=== PATIENT | male | born 1975 ===

== ENCOUNTER 2017-12-04 13:25 | Emergency (ER) | payer BC ==
[2017-12-04 13:40] VITALS: BMI 27.8
[2017-12-04 13:44] VITALS: TEMP 98.6
[2017-12-04] MEDS ORDERED: Oxycodone/Acetaminophen 5/325 mg Tab PO STA (14:02)
--- NOTE | 2017-12-04 14:02 | ED PDOC ---
Arrival/HPI - General Chief Complaint: Rib Injury Time Seen by Provider: 12/04/17 13:57 Past Medical History - Infectious Disease Hx of Infectious Diseases: None - Psychiatric Hx Substance Use: No - Surgical History Other/Comment: vocal cord surgery 09/28/2017 - Anesthesia Hx Anesthesia Reactions: No Hx Malignant Hyperthermia: No Family/Social History Smoking Status: Never Smoked Hx Alcohol Use: Yes Frequency of alcohol use: Socially Hx Substance Use: No Allergies/Home Meds Allergies/Adverse Reactions: Allergies No Known Allergies Allergy (Verified 12/04/17 14:02) Physical Exam Vital Signs Temp Pulse Resp BP Pulse Ox 12/04/17 13:26 98.6 F 79 18 120/79 98 Disposition/Present on Arrival - Present on Arrival History of DVT/PE: No History of Uncontrolled Diabetes: No Urinary Catheter: No History of Decub. Ulcer: No History Surgical Site Infection Following: None - Disposition
--- NOTE | 2017-12-04 14:06 | ED PDOC ---
Arrival/HPI - General Chief Complaint: Rib Injury Time Seen by Provider: 12/04/17 13:57 Historian: Patient - History of Present Illness Narrative History of Present Illness (Text): 12/04/17 14:02 42 year old male, with no significant past medical history, who presents to the Emergency department complaining of right anterior rib cage pain for 7 days s/p hit against the side view mirror. Patient states he was washing a car, slipped and fell, hitting the car's side view mirror against the rt. anterior rib. Patient notes persistent pain every time he coughs or turns the chest cavity, no hematuria, no abdominal pain, eating and drinking well. Patient denies any fever, chills, chest pain, shortness of breath, nausea, vomiting, diarrhea, neck pain, headache, dizziness, or any other complaints. Time/Duration: 1 week Symptom Onset: Sudden Symptom Course: Unchanged Activities at Onset: Significant (Fall) Context: Slipped Past Medical History - Provider Review Nursing Documentation Reviewed: Yes - Infectious Disease Hx of Infectious Diseases: None - Psychiatric Hx Substance Use: No - Surgical History Other/Comment: vocal cord surgery 09/28/2017 - Anesthesia Hx Anesthesia Reactions: No Hx Malignant Hyperthermia: No Family/Social History - Physician Review Nursing Documentation Reviewed: Yes Family/Social History: Unknown Family HX Smoking Status: Never Smoked Hx Alcohol Use: Yes Frequency of alcohol use: Socially Hx Substance Use: No Allergies/Home Meds Allergies/Adverse Reactions: Allergies No Known Allergies Allergy (Verified 12/04/17 14:02) Review of Systems - Review of Systems Constitutional: Normal Eyes: Normal ENT: Normal Respiratory: Normal. absent: SOB, Cough Cardiovascular: Normal. absent: Chest Pain Gastrointestinal: Normal. absent: Abdominal Pain Genitourinary Male: Normal. absent: Dysuria, Frequency, Hematuria Musculoskeletal: Arthralgias (Right rib cage), Myalgias. absent: Back Pain, Neck Pain Skin: Normal. absent: Rash Neurological: Normal. absent: Headache, Dizziness Endocrine: Normal Hemo/Lymphatic: Normal Psychiatric: Normal Physical Exam Vital Signs Reviewed: Yes Vital Signs Temp Pulse Resp BP Pulse Ox 12/04/17 13:26 98.6 F 79 18 120/79 98 Temperature: Afebrile Blood Pressure: Normal Pulse: Regular Respiratory Rate: Normal Appearance: Positive for: Well-Appearing, Non-Toxic, Comfortable Pain Distress: Moderate Mental Status: Positive for: Alert and Oriented X 3 - Systems Exam Head: Present: Atraumatic, Normocephalic Pupils: Present: PERRL Extroacular Muscles: Present: EOMI Conjunctiva: Present: Normal Mouth: Present: Moist Mucous Membranes Neck: Present: Normal Range of Motion Respiratory/Chest: Present: Clear to Auscultation, Good Air Exchange, Tender to Palpation (+ttp on the rt. anterior mid anterior midclavicular rib region approx. 5-8th rib region with no ecchymosis/laceration/abrasion. ). No: Respiratory Distress, Accessory Muscle Use Cardiovascular: Present: Regular Rate and Rhythm, Normal S1, S2. No: Murmurs Abdomen: No: Tenderness, Distention, Peritoneal Signs Back: Present: Normal Inspection Upper Extremity: Present: Normal Inspection. No: Cyanosis, Edema Lower Extremity: Present: Normal Inspection. No: Edema Neurological: Present: GCS=15, CN II-XII Intact, Speech Normal Skin: Present: Warm, Dry, Normal Color. No: Rashes Psychiatric: Present: Alert, Oriented x 3, Normal Insight, Normal Concentration Medical Decision Making ED Course and Treatment: 12/04/17 14:08 Impression: 42 year old male who presents to the emergency department complaining of right anterior rib cage pain for 7 days s/p fall. Plan: -- CT Chest -- Ibuprofen -- Observe and reassess 12/04/17 16:31 -CT results show: Slightly limited motion degraded study. Minor scarring changes middle lobe region. Small 3.3 mm nodule lateral aspect right middle lobe. Followup the CT scan in 12 months could be performed. There is also minor biapical pleural thickening and parenchymal scarring cases Note that motion artifact particularly limits evaluation of the right ribs. . There is slight localized angulation of the anterior right 4th rib of which though the cortex appears intact at this level at however motion artifact is a limiting factor particularly in evaluation of the right ribs. (best visualized on axial series 3 image number [id number]). This could be an anatomic variation though a nondisplaced fracture cannot be completely excluded. . The remaining ribs appear grossly intact so far as can be seen. -As per Radiologist recommendation Dr. Pack, pt. will need follow up CT chest in 12 months. -I discussed with the patient about the likely murphy of possible small non- displaced rt. 4th rib fracture as it is inconclusive on the CT but this is the location of the pain. Pain improved, feeling much better. -Discharge home with incentive spirometer, motrin, lidoderm patch, follow up with repeat CT chest in 12 months as per the radiologist recommendation about the nodule 3.3mm on the lateral aspect of the rt. middle lung, avoid strenuous exercise or activity, follow up with your own pmd and orthopedic within 2 days, return to the ER for any new or worsening signs or symptoms. - RAD Interpretation Radiology Orders: 12/04/17 14:02 CHEST W/O CONTRAST [CT] Stat PROCEDURE: CT Chest without contrast HISTORY: Right anterior rib cage pain. COMPARISON: No prior study available for comparison TECHNIQUE: Contiguous axial images were obtained through the chest without intravenous contrast enhancement. Sagittal and coronal reconstructions were performed. Radiation dose (DLP): 550.65 mGy-cm. This CT exam was performed using one or more of the following dose reduction techniques: Automated exposure control, adjustment of the mA and/or kV according to patient size, and/or use of iterative reconstruction technique. FINDINGS: LUNGS: Minor localized scarring changes in the middle lobe abutting the pleural surface. Minor biapical pleural thickening and minimal adjacent parenchymal scarring. Lung oh are otherwise clear. No evidence of acute consolidation. . There is a tiny approximately 3.3 mm nodule lateral aspect right middle lobe. Follow-up CT scan in 12 months could be performed to assess stability. MEDIASTINUM: Heart size is within range normal. No significant pericardial effusion. Ascending thoracic aorta measures approximately 3.7 cm and descending thoracic aorta measures approximately 2.8 cm. Three-vessel arch. Pulmonary trunk measures approximately 3.1 cm. No significant mediastinal adenopathy. Evaluation for hilar adenopathy is limited due to the lack of circulating intravenous contrast material. Central airways midline patent. No large central endoluminal lesions. PLEURA: No evidence of effusion or pneumothorax. BONES: No evidence of acute compression fractures no retropulsed fragments seen within the visualized lower cervical thoracic or left. Minor multilevel degenerative spondylosis. Note that motion artifact particularly limits evaluation of the right ribs. . There is slight localized angulation of the anterior right 4th rib of which though the cortex appears intact at this level at however motion artifact is a limiting factor particularly in evaluation of the right ribs. (best visualized on axial series 3 image number [id number]). This could be an anatomic variation though a nondisplaced fracture cannot be completely excluded. . The remaining ribs appear grossly intact so far as can be seen. UPPER ABDOMEN: Visualized upper abdominal structures appear grossly unremarkable. OTHER FINDINGS: None. IMPRESSION: Slightly limited motion degraded study . Minor scarring changes middle lobe region. Small 3.3 mm nodule lateral aspect right middle lobe. Followup the CT scan in 12 months could be performed. There is also minor biapical pleural thickening and parenchymal scarring cases Note that motion artifact particularly limits evaluation of the right ribs. . There is slight localized angulation of the anterior right 4th rib of which though the cortex appears intact at this level at however motion artifact is a limiting factor particularly in evaluation of the right ribs. (best visualized on axial series 3 image number [id number]). This could be an anatomic variation though a nondisplaced fracture cannot be completely excluded. . The remaining ribs appear grossly intact so far as can be seen. County Manager: Radiologist - Medication Orders Current Medication Orders: Discontinued Medications Ibuprofen (Motrin Tab) 600 mg PO STAT STA Stop: 12/04/17 14:03 Last Admin: 12/04/17 14:30 Dose: 600 mg Oxycodone/Acetaminophen (Percocet 5/325 Mg Tab) 1 tab PO STAT STA Stop: 12/04/17 14:03 Last Admin: 12/04/17 14:29 Dose: 1 tab [facility] Pain Assessment Document 12/04/17 14:29 EWO (Rec: 12/04/17 14:30 EWO [id number]) Pain Reassessment Is this a pain reassessment? No Sleep Is patient sleeping during reassessment? No Presence of Pain Presence of Pain Yes Pain Scale Used Pain Scale Used Numeric Location Left, Right or Bilateral Right - PA / GIS PROFESSOR / Resident Statement MD/DO has reviewed & agrees with the documentation as recorded. - Scribe Statement The provider has reviewed the documentation as recorded by the Vaneibhermann Nunez All medical record entries made by the Scribe were at my direction and personally dictated by me. I have reviewed the chart and agree that the record accurately reflects my personal performance of the history, physical exam, medical decision making, and the department course for this patient. I have also personally directed, reviewed, and agree with the discharge instructions and disposition. Disposition/Present on Arrival - Present on Arrival Any Indicators Present on Arrival: No History of DVT/PE: No History of Uncontrolled Diabetes: No Urinary Catheter: No History of Decub. Ulcer: No History Surgical Site Infection Following: None - Disposition Have Diagnosis and Disposition been Completed?: Yes Diagnosis: Rib injury, Rib pain, Abnormal CT of the chest, Lung nodule Disposition: HOME/ ROUTINE Disposition Time: 14:19 Patient Plan: Discharge Patient Problems: Current Active Problems Problem Status Onset Rib injury Acute Condition: GOOD Discharge Instructions (ExitCare): Pulmonary Nodule Additional Instructions: -Discharge home with incentive spirometer, motrin, lidoderm patch, follow up with repeat CT chest in 12 months as per the radiologist recommendation about the nodule 3.3mm on the lateral aspect of the rt. middle lung, avoid strenuous exercise or activity, follow up with your own pmd and orthopedic within 2 days, return to the ER for any new or worsening signs or symptoms. Prescriptions: Ibuprofen [Motrin] 600 mg PO QID PRN #30 tab PRN Reason: Other Lidocaine 5% [Lidoderm] 1 patch TOP DAILY #14 patch Referrals: Blake Iglesias MD [Staff Provider] - Follow up with primary Stalin Jiménez III, MD [Medical Doctor] - Follow up with primary [facility] at [facility] [place] [Outside] - Follow up with primary Forms: WORK NOTE
--- NOTE | 2017-12-04 16:25 | CT ---
PROCEDURE: CT Chest without contrast HISTORY: Right anterior rib cage pain. COMPARISON: No prior study available for comparison TECHNIQUE: Contiguous axial images were obtained through the chest without intravenous contrast enhancement. Sagittal and coronal reconstructions were performed. Radiation dose (DLP): 550.65 mGy-cm. This CT exam was performed using one or more of the following dose reduction techniques: Automated exposure control, adjustment of the mA and/or kV according to patient size, and/or use of iterative reconstruction technique. FINDINGS: LUNGS: Minor localized scarring changes in the middle lobe abutting the pleural surface. Minor biapical pleural thickening and minimal adjacent parenchymal scarring. Lung oh are otherwise clear. No evidence of acute consolidation. . There is a tiny approximately 3.3 mm nodule lateral aspect right middle lobe. Follow-up CT scan in 12 months could be performed to assess stability. MEDIASTINUM: Heart size is within range normal. No significant pericardial effusion. Ascending thoracic aorta measures approximately 3.7 cm and descending thoracic aorta measures approximately 2.8 cm. Three-vessel arch. Pulmonary trunk measures approximately 3.1 cm. No significant mediastinal adenopathy. Evaluation for hilar adenopathy is limited due to the lack of circulating intravenous contrast material. Central airways midline patent. No large central endoluminal lesions. PLEURA: No evidence of effusion or pneumothorax. BONES: No evidence of acute compression fractures no retropulsed fragments seen within the visualized lower cervical thoracic or left. Minor multilevel degenerative spondylosis. Note that motion artifact particularly limits evaluation of the right ribs. . There is slight localized angulation of the anterior right 4th rib of which though the cortex appears intact at this level at however motion artifact is a limiting factor particularly in evaluation of the right ribs. (best visualized on axial series 3 image number [id number]). This could be an anatomic variation though a nondisplaced fracture cannot be completely excluded. . The remaining ribs appear grossly intact so far as can be seen. UPPER ABDOMEN: Visualized upper abdominal structures appear grossly unremarkable. OTHER FINDINGS: None. IMPRESSION: Slightly limited motion degraded study . Minor scarring changes middle lobe region. Small 3.3 mm nodule lateral aspect right middle lobe. Followup the CT scan in 12 months could be performed. There is also minor biapical pleural thickening and parenchymal scarring cases Note that motion artifact particularly limits evaluation of the right ribs. . There is slight localized angulation of the anterior right 4th rib of which though the cortex appears intact at this level at however motion artifact is a limiting factor particularly in evaluation of the right ribs. (best visualized on axial series 3 image number [id number]). This could be an anatomic variation though a nondisplaced fracture cannot be completely excluded. . The remaining ribs appear grossly intact so far as can be seen.
[2017-12-04 17:09] VITALS: BP 148/92; PULSE 72; RESP 17; O2SAT 99
== END 2017-12-04 17:11 | disposition home or self-care (01) ==
LOC: ED 13:25
DX: R91.8 Other nonspecific abnormal finding of lung field (principal); S29.9XXA Unspecified injury of thorax, initial encounter; W01.198A Fall on same level from slipping, tripping and stumbling with subsequent striking against other object, initial encounter; Y93.89 Activity, other specified; Y92.89 Other specified places as the place of occurrence of the external cause

== ENCOUNTER 2019-01-07 10:36 | Emergency (ER) | payer BC ==
[2019-01-07 11:15] VITALS: BP 140/95; PULSE 79; RESP 17; TEMP 98.7; O2SAT 97; BMI 28.0
--- NOTE | 2019-01-07 15:30 | ED PDOC ---
Arrival/HPI - General Chief Complaint: Eye Problem Time Seen by Provider: 01/07/19 10:38 Historian: Patient - History of Present Illness Narrative History of Present Illness (Text): 01/07/19 10:40 A 43 year old male with no significant past medical history presents to the emergency department complaining of right eye pain and eyelid swelling for the past 1 day. Patient reports he woke up and noted his eye was "glued shut". Pa delia denies any pain upon eye movement, vision changes, fever, chest pain, or any other complaints. PMD: Leia Sadler Time/Duration: 24 hours Symptom Onset: Gradual Symptom Course: Unchanged Activities at Onset: Light Context: Home Past Medical History - Provider Review Nursing Documentation Reviewed: Yes - Infectious Disease Hx of Infectious Diseases: None - Cardiac Hx Cardiac Disorders: No - Pulmonary Hx Respiratory Disorders: No - Neurological Hx Neurological Disorder: No - HEENT Hx HEENT Disorder: No - Renal Hx Renal Disorder: No - Endocrine/Metabolic Hx Endocrine Disorders: No - Hematological/Oncological Hx Blood Disorders: No - Integumentary Hx Dermatological Disorder: No - Musculoskeletal/Rheumatological Hx Musculoskeletal Disorders: No - Gastrointestinal Hx Gastrointestinal Disorders: No - Genitourinary/Gynecological Hx Genitourinary Disorders: No - Psychiatric Hx Psychophysiologic Disorder: No Hx Substance Use: No - Surgical History Other/Comment: vocal cord surgery 09/28/2017 - Anesthesia Hx Anesthesia: No Family/Social History - Physician Review Nursing Documentation Reviewed: Yes Family/Social History: No Known Family HX Smoking Status: Never Smoked Hx Alcohol Use: Yes Hx Substance Use: No Allergies/Home Meds Allergies/Adverse Reactions: Allergies No Known Allergies Allergy (Verified 12/04/17 14:02) Review of Systems - Physician Review All systems were reviewed & negative as marked: Yes - Review of Systems Constitutional: absent: Fevers Eyes: Eye Pain (right eye pain), Other (eyelid swelling). absent: Vision Changes Cardiovascular: absent: Chest Pain Physical Exam Vital Signs Temp Pulse Resp BP Pulse Ox 01/07/19 11:04 98.7 F 79 17 140/95 H 97 Temperature: Afebrile Blood Pressure: Hypertensive Pulse: Regular Respiratory Rate: Normal Appearance: Positive for: Non-Toxic Pain Distress: Mild Mental Status: Positive for: Alert and Oriented X 3 - Systems Exam Head: Present: Atraumatic, Normocephalic Pupils: Present: PERRL Extroacular Muscles: Present: EOMI Conjunctiva: Present: Injected Respiratory/Chest: Present: Clear to Auscultation, Good Air Exchange. No: Respiratory Distress, Accessory Muscle Use Cardiovascular: Present: Regular Rate and Rhythm, Normal S1, S2. No: Murmurs Neurological: Present: GCS=15, CN II-XII Intact, Speech Normal Skin: Present: Warm, Dry, Normal Color, Other (no puss noted to the left eyelid; eyelid is mild swollen and erythematous ). No: Rashes Psychiatric: Present: Alert, Oriented x 3, Normal Insight, Normal Concentration Medical Decision Making ED Course and Treatment: 01/07/19 10:40 Impression: 43 year old male presenting to the emergency room complaining of right eye pain and eyelid swelling for the past 1 day. Plan: -- Reassess and disposition Prior Visits: Notes and results from previous visits were reviewed. Progress Notes: - Scribe Statement The provider has reviewed the documentation as recorded by the Vaneibhermann Smith All medical record entries made by the Scribe were at my direction and personally dictated by me. I have reviewed the chart and agree that the record accurately reflects my personal performance of the history, physical exam, medical decision making, and the department course for this patient. I have also personally directed, reviewed, and agree with the discharge instructions and disposition. Disposition/Present on Arrival - Present on Arrival Any Indicators Present on Arrival: No History of DVT/PE: No History of Uncontrolled Diabetes: No Urinary Catheter: No History of Decub. Ulcer: No History Surgical Site Infection Following: None - Disposition Have Diagnosis and Disposition been Completed?: Yes Diagnosis: Cellulitis of eyelid, Conjunctivitis Disposition: HOME/ ROUTINE Disposition Time: 11:00 Condition: GOOD Discharge Instructions (ExitCare): Conjunctivitis ([place]) Additional Instructions: TRA AREVALO, thank you for letting us take care of you today. The emergency medical care you received today was directed at your acute symptoms. If you were prescribed any medication, please fill it and take as directed. It may take several days for your symptoms to resolve. Return to the Emergency Department if your symptoms worsen, do not improve, or if you have any other problems. Please contact your doctor or call one of the physicians/clinics you have been referred to that are listed on the Patient Visit Information form that is included in your discharge packet. Bring any paperwork you were given at discharge with you along with any medications you are taking to your follow up visit. Our treatment cannot replace ongoing medical care by a primary care provider outside of the emergency department. Thank you for allowing the [facility] team to be part of your care today. Follow up with your primary care doctor early next week for re-evaluation and further management. Return to the emergency room if you have any concerns. Prescriptions: Cephalexin [cephalexin] 500 mg PO QID #28 cap Polymyxin/Trimethoprim Sulfate [Polytrim Ophth Soln] 2 drop OS Q6 #1 bottle Referrals: [facility], [Non-Staff] - Follow up with primary Forms: [employer] (Mal[place]ian)
== END 2019-01-07 11:22 | disposition home or self-care (01) ==
LOC: ED 10:36
DX: H00.033 Abscess of eyelid right eye, unspecified eyelid (principal); H10.9 Unspecified conjunctivitis